=== PATIENT | male | born 1960 | race Caucasian/White ===

== ENCOUNTER 2017-04-14 03:48 | Observation (INO) | payer BC ==
[2017-04-14] MEDS ORDERED: Nitroglycerin 2% OINT* 1 GM PAK TOPICAL ONE (04:34)
[2017-04-14] MEDS ORDERED: Heparin DRIP 25,000 UNITS(*) 25,000 UNITS/500 ML BAG IVPB SCH ×2 (04:45→09:15)
[2017-04-14 04:47] LABS: ABS Basophils 0 10^3/ul (0-0.2); ABS Eosinophils 0.2 10^3/ul (0-0.6); ABS Lymphocytes 1.5 10^3/ul (1.0-4.8); ABS Monocytes 0.4 10^3/ul (0-0.8); ABS Neutrophils 2.9 10^3/ul (1.5-7.7); ABS Nucleated RBC 0 10^3/ul; Eosinophil % 4.1 % (0-6); Hematocrit 40 % (42-52); Hemoglobin 13.6 g/dl (14.0-18.0); Lymphocyte % 29.2 % (25-47); Mean Corpuscular HGB Conc 35 g/dl (31-36); Mean Corpuscular Hemoglobin 32 pg (27-31); Mean Corpuscular Volume 93 fL (80-94); Mean Platelet Volume 9 um3 (7.4-10.4); Nucleated Red Blood Cells % 0.1; Platelet Count 171 10^3/ul (150-450); Red Blood Count 4.25 10^6/ul (4.0-5.4); Red Cell Distribution Width 12 % (10.5-15)
[2017-04-14] MEDS ORDERED: Heparin VIAL(*) 5000 UNITS/ML VIAL (FIVE THOUSAND) IV SCH ×3 (05:00→11:00)
[2017-04-14 05:02] LABS: EGFR Non-African American 71.8 (>60)
[2017-04-14 05:25] LABS: INR 0.85 (0.77-1.02)
--- NOTE | 2017-04-14 06:24 | ED ---
Felipe Bae Thomas, scribed for Pasha Ceja on 04/14/17 at 0410 . HPI Chest Pain - HPI Summary HPI Summary: The patient is a 56 year old male presenting to the emergency department complaining of chest pain that began six hours ago (yesterday at 23:30). The pain radiates to his jaw and left arm. He describes the pain as tightness. The pain is rated 2/10. The patient has treated the symptoms with ASA 325 at home, ASA 324 by EMS, and Nitro SL x1 by EMS. The patient denies abdominal pain, nausea, vomiting, and diaphoresis. He takes ASA 81 each morning. He denies a cardiac history. He does not smoke. The patients father of an MN in his 40s. The patient has never had a stress test performed. - History of Current Complaint Chief Complaint: EDChestPainROMI Time Seen by Provider: 04/14/17 04:02 Hx Obtained From: Patient Onset/Duration: Started Hours Ago - 6, Still Present Timing: Constant Initial Severity: Moderate Current Severity: Mild Pain Intensity: 2 Pain Scale Used: 0-10 Numeric Chest Pain Radiates: Yes Chest Pain Radiates To:: Arm - left, Jaw Character: Tightness Aggravating Factor(s): Nothing Alleviating Factor(s): Nothing Associated Signs and Symptoms: Positive: Chest Pain. Negative: Other: - abd pain, nausea, vomiting, diaphoresis - Allergy/Home Medications Allergies/Adverse Reactions: Allergies Allergy/AdvReac Type Severity Reaction Status Date / Time No Known Allergies Allergy Verified 04/14/17 04:04 Home Medications: Home Medications Aspirin 81 MG TAB 81 mg PO DAILY 04/14/17 [History Confirmed 04/14/17] Multivitamin 1 tab PO DAILY 04/14/17 [History Confirmed 04/14/17] PMH/Surg Hx/FS Hx/Imm Hx Endocrine/Hematology History: Denies: Hx Diabetes Cardiovascular History: Denies: Hx Hypertension, Hx Pacemaker/ICD GI History: Reports: Hx Obstructive Bowel - 2003, Other GI Disorders - tubular adenoma colon polyp, intussusception & appey History: Denies: Hx Renal Disease Musculoskeletal History: Reports: Hx Arthritis - cervical Denies: Hx Scoliosis Sensory History: Denies: Hx Hearing Aid Neurological History: Denies: Hx Headaches Psychiatric History: Denies: Hx Panic Disorder - Surgical History Surgery Procedure, Year, and Place: teens - intussusception & appendectomy at the same time. 04/2004 [facility] [place] - bowel obstruction ( 1978 PARTIAL RESECTION - FROM OBSTRUCTION). 02/2009 [facility] [place] - colonoscopy w/biopsy - Immunization History Date of Influenza Vaccine: has not received Infectious Disease History: No Infectious Disease History: Denies: Traveled Outside the [place] in Last 30 Days - Family History Known Family History: Positive: Cardiac Disease - father of MN in his 40s - Social History Alcohol Use: Weekly Substance Use Type: Reports: Marijuana Hx Tobacco Use: Yes Smoking Status (MU): Former Smoker Review of Systems Negative: Fever, Skin Diaphoresis Positive: Chest Pain Negative: Abdominal Pain, Vomiting, Nausea All Other Systems Reviewed And Are Negative: Yes Physical Exam - Summary Physical Exam Summary: Appearance: Well appearing, no pain distress Skin: warm, dry, reflects adequate perfusion Head/face: normal Eyes: EOMI, RIVERA ENT: normal Neck: supple, non-tender Respiratory: CTA, breath sounds present Cardiovascular: RRR, pulses symmetrical Abdomen: non-tender, soft Bowel: present Musculoskeletal: normal, strength/ROM intact Neuro: normal, sensory motor intact, A&Ox3 Triage Information Reviewed: Yes Vital Signs On Initial Exam: Initial Vitals Temp Pulse Resp BP Pulse Ox 97.7 F 66 16 141/98 98 04/14/17 03:50 04/14/17 03:50 04/14/17 03:50 04/14/17 03:50 04/14/17 03:50 Vital Signs Reviewed: Yes Diagnostics - Vital Signs Vital Signs Temp Pulse Resp BP Pulse Ox 04/14/17 04:00 66 16 99 04/14/17 03:58 65 15 99 04/14/17 03:50 97.7 F 66 16 141/98 98 - Laboratory Lab Results: Lab Results 04/14/17 04/14/17 04/14/17 Range/Units 04:10 04:10 04:10 WBC 5.0 (3.5-10.8) 10^3/ul RBC 4.25 (4.0-5.4) 10^6/ul Hgb 13.6 L (14.0-18.0) g/dl Hct 40 L (42-52) % MCV 93 (80-94) fL MCH 32 H (27-31) pg MCHC 35 (31-36) g/dl RDW 12 (10.5-15) % Plt Count 171 (150-450) 10^3/ul MPV 9 (7.4-10.4) um3 Neut % (Auto) 57.8 (38-83) % Lymph % (Auto) 29.2 (25-47) % Crook % (Auto) 8.6 (1-9) % Eos % (Auto) 4.1 (0-6) % Baso % (Auto) 0.3 (0-2) % Absolute Neuts (auto) 2.9 (1.5-7.7) 10^3/ul Absolute Lymphs (auto) 1.5 (1.0-4.8) 10^3/ul Absolute Monos (auto) 0.4 (0-0.8) 10^3/ul Absolute Eos (auto) 0.2 (0-0.6) 10^3/ul Absolute Basos (auto) 0 (0-0.2) 10^3/ul Absolute Nucleated RBC 0 10^3/ul Nucleated RBC % 0.1 INR (Anticoag Therapy) 0.85 (0.77-1.02) APTT 29.9 (26.0-36.3) seconds Sodium 136 (133-145) mmol/L Potassium 3.4 L (3.5-5.0) mmol/L Chloride 104 (101-111) mmol/L Carbon Dioxide 26 (22-32) mmol/L Anion Gap 6 (2-11) mmol/L BUN 21 (6-24) mg/dL Creatinine 1.06 (0.67-1.17) mg/dL Est GFR ( Amer) 92.3 (>60) Est GFR (Non-Af Amer) 71.8 (>60) BUN/Creatinine Ratio 19.8 (8-20) Glucose 118 H (70-100) mg/dL Lactic Acid (0.5-2.0) mmol/L Calcium 9.2 (8.6-10.3) mg/dL Magnesium 1.9 (1.9-2.7) mg/dL Total Bilirubin 0.40 (0.2-1.0) mg/dL AST 24 (13-39) U/L ALT 20 (7-52) U/L Alkaline Phosphatase 61 (34-104) U/L Troponin I 0.03 (<0.04) ng/mL Total Protein 6.4 (6.4-8.9) g/dL Albumin 3.9 (3.2-5.2) g/dL Globulin 2.5 (2-4) g/dL Albumin/Globulin Ratio 1.6 (1-3) Lipase 36 (11.0-82.0) U/L 04/14/17 Range/Units 04:10 WBC (3.5-10.8) 10^3/ul RBC (4.0-5.4) 10^6/ul Hgb (14.0-18.0) g/dl Hct (42-52) % MCV (80-94) fL MCH (27-31) pg MCHC (31-36) g/dl RDW (10.5-15) % Plt Count (150-450) 10^3/ul MPV (7.4-10.4) um3 Neut % (Auto) (38-83) % Lymph % (Auto) (25-47) % Crook % (Auto) (1-9) % Eos % (Auto) (0-6) % Baso % (Auto) (0-2) % Absolute Neuts (auto) (1.5-7.7) 10^3/ul Absolute Lymphs (auto) (1.0-4.8) 10^3/ul Absolute Monos (auto) (0-0.8) 10^3/ul Absolute Eos (auto) (0-0.6) 10^3/ul Absolute Basos (auto) (0-0.2) 10^3/ul Absolute Nucleated RBC 10^3/ul Nucleated RBC % INR (Anticoag Therapy) (0.77-1.02) APTT (26.0-36.3) seconds Sodium (133-145) mmol/L Potassium (3.5-5.0) mmol/L Chloride (101-111) mmol/L Carbon Dioxide (22-32) mmol/L Anion Gap (2-11) mmol/L BUN (6-24) mg/dL Creatinine (0.67-1.17) mg/dL Est GFR ( Amer) (>60) Est GFR (Non-Af Amer) (>60) BUN/Creatinine Ratio (8-20) Glucose (70-100) mg/dL Lactic Acid 0.8 (0.5-2.0) mmol/L Calcium (8.6-10.3) mg/dL Magnesium (1.9-2.7) mg/dL Total Bilirubin (0.2-1.0) mg/dL AST (13-39) U/L ALT (7-52) U/L Alkaline Phosphatase (34-104) U/L Troponin I (<0.04) ng/mL Total Protein (6.4-8.9) g/dL Albumin (3.2-5.2) g/dL Globulin (2-4) g/dL Albumin/Globulin Ratio (1-3) Lipase (11.0-82.0) U/L Result Diagrams: 04/14/17 04:10 04/14/17 04:10 Lab Statement: Any lab studies that have been ordered have been reviewed, and results considered in the medical decision making process. - Radiology CXR Xray Interpretation: No Acute Changes - Negative Radiology Interpretation Completed By: ED Physician - CT CTA Head CT Interpretation: No Acute Changes - No evidence of major arterial branch occlusion, focal stenosis, vascular malformations, or aneurysms [address] Ceja has reviewed this report. CT Interpretation Completed By: Radiologist - EKG 03:53 Cardiac Rate: NL EKG Rhythm: Sinus Rhythm - at 64 BPM EKG Interpretation: ST depressions in inferior leads Chest Pain Course/Dx - Course Assessment/Plan: The patient is a 56 year old male presenting to the emergency department complaining of chest pain. The patient was given NTG and heparin in the emergency department. EKG shows ST depressions in inferior leads. CXR was obtained. The patient will be admitted to Dr. Valdez. - Chest Pain Differential Diagnosis/HQI/PQRI: Acute MN, ACS, CHF, Chest Wall, Lower Respiratory Infection, Pulmonary Edema - Diagnoses Provider Diagnoses: Chest pain, rule out acute myocardial infarction, Unstable angina - Provider Notifications Discussed Care Of Patient With: Olimpia Valdez Time Discussed With Above Provider: 05:52 Instructed by Provider To: Admit As Inpatient - Critical Care Time Critical Care Time: 30-74 min Discharge - Discharge Plan Condition: Stable Disposition: ADMITTED TO [facility] Referrals: Saroj Manriquez MD [Primary Care Provider] - The documentation as recorded by the Felipe pride Thomas accurately reflects the service I personally performed and the decisions made by me, Pasha Ceja.
[2017-04-14] MEDS ORDERED: Acetaminophen TAB* 325 MG PO PRN (06:34)
[2017-04-14] MEDS ORDERED: Ondansetron INJ* 2 MG/ML VIAL IV PRN (06:34)
[2017-04-14] MEDS ORDERED: Al Hydrox/Mg Hydrox/Simet LIQ* 30 ML UDC PO PRN (06:34)
--- NOTE | 2017-04-14 08:16 | RAD ---
HISTORY: Chest pain COMPARISONS: None VIEWS: 1: frontal portable view of the chest at 5:07 AM FINDINGS: LINES AND TUBES: None. CARDIOMEDIASTINAL SILHOUETTE: The cardiomediastinal silhouette is normal for portable technique. PLEURA: The costophrenic angles are sharp. No pleural abnormalities are noted. LUNG PARENCHYMA: The lungs are clear. ABDOMEN: The upper abdomen is clear. There is no subphrenic gas. BONES AND SOFT TISSUES: No bone or soft tissue abnormalities are noted. IMPRESSION: NO ACTIVE CARDIOPULMONARY DISEASE.
[2017-04-14] MEDS ORDERED: Atorvastatin* 80 MG TAB PO ONE (09:19)
--- NOTE | 2017-04-14 09:26 | PN ---
Hospitalist Progress Note Date of Service: 04/14/17 Called for second troponin positive at 0.43. I saw and examined Mr. Loomis; he is chest pain free. A stat ekg shows resolution of the inferior ST depressions and a q wave in avf. Hemodynamically stable. A/P: 56 yo M admitted with chest pain overnight found to have +troponin and ischemic ekg changes Acute Coronary Syndrome. NSTEMI. --DC stress test, start heparin, asa, statin, bb. Discussed case with cardiology for evaluation of LHC. Will hold plavix until they evaluate.
[2017-04-14] MEDS ORDERED: Diazepam TAB(*) 5 MG PO ONE (10:13)
[2017-04-14] MEDS ORDERED: diPHENhydraMINE PO* 25 MG PO ONE (10:13)
[2017-04-14] MEDS ORDERED: Heparin DRIP 25,000 UNITS(*) 25,000 UNITS/500 ML BAG IV SCH (10:15)
[2017-04-14] MEDS: Metoprolol Tartrate TAB* 25 MG PO SCH ×3 (10:15→22:41)
[2017-04-14] MEDS: Aspirin EC Low Dose* 81 MG TAB.EC PO SCH (10:15)
[2017-04-14] MEDS ORDERED: NS 0.9% 1000 ML* 1,000 ML IV SCH ×2 (10:15→14:30)
[2017-04-14] MEDS: Atorvastatin* 80 MG TAB PO SCH (10:16)
[2017-04-14 10:22] LABS: ABS Basophils 0 10^3/ul (0-0.2); ABS Eosinophils 0.2 10^3/ul (0-0.6); ABS Lymphocytes 1.4 10^3/ul (1.0-4.8); ABS Monocytes 0.4 10^3/ul (0-0.8); ABS Neutrophils 2.9 10^3/ul (1.5-7.7); ABS Nucleated RBC 0 10^3/ul; Eosinophil % 3.1 % (0-6); Hematocrit 41 % (42-52); Hemoglobin 13.5 g/dl (14.0-18.0); Lymphocyte % 28.1 % (25-47); Mean Corpuscular HGB Conc 33 g/dl (31-36); Mean Corpuscular Hemoglobin 31 pg (27-31); Mean Corpuscular Volume 94 fL (80-94); Mean Platelet Volume 8 um3 (7.4-10.4); Nucleated Red Blood Cells % 0; Platelet Count 175 10^3/ul (150-450); Red Blood Count 4.32 10^6/ul (4.0-5.4); Red Cell Distribution Width 12 % (10.5-15); White Blood Count 4.9 10^3/ul (3.5-10.8)
[2017-04-14] MEDS ORDERED: nitroGLYCERIN DRIP* 25,000 MCG/250 ML BTL ONE (11:50)
[2017-04-14] MEDS ORDERED: Heparin 2 UNITS/ML IVPREMIX* 3,000 ML IV ONE (11:50)
[2017-04-14] MEDS ORDERED: Lidocaine 1% INJ* 10 MG/ML 30 ML SDV ONE (11:50)
[2017-04-14] MEDS ORDERED: fentaNYL* 50 MCG/ML 2 ML VIAL (100 MCG VIAL) ONE (11:50)
[2017-04-14] MEDS ORDERED: Iohexol 350 (CONTRAST) 200 ML MDV IV ONE ×2 (11:50→13:23)
[2017-04-14] MEDS ORDERED: Midazolam* 1 MG/ML 10 ML VIAL (10 MG) ONE (11:50)
[2017-04-14] MEDS ORDERED: Heparin(*) 1000 UNIT/ML 10 ML VIAL CATH LAB IV ONE (11:50)
[2017-04-14] MEDS ORDERED: VERAPAMIL 2.5 MG/ML 2 ML VIAL ** 5 mg/2 ml ONE ×2 (11:55→12:28)
[2017-04-14] MEDS ORDERED: Bivalirudin(*) 250 MG VIAL ONE ×2 (12:42)
--- NOTE | 2017-04-14 12:58 | HP ---
CC: Saroj Manriquez MD HISTORY AND PHYSICAL: DATE OF ADMISSION: 04/14/17 TIME OF EVALUATION: 629. PRIMARY CARE PHYSICIAN: Dr. Saroj Manriquez. CHIEF COMPLAINT: Chest pain. HISTORY OF PRESENT ILLNESS: This is a 56-year-old male with unremarkable past medical history presents to the emergency room with acute onset of chest pain. 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 He had a stressful day. He came home. He had 2 slices of pizza, went to basketball game, came back, had some more pizza. He went out and he snow-blowed. He pulled some wood and he shoveled which is not out of the norm for him. Went to bed, woke up with chest heaviness and numbness radiating down his arm and chest numbness as well. No associated shortness of breath. No nausea, no diaphoresis. He tried to go back to sleep. He woke up again with this persistent chest pressure. He took 2 aspirin. He woke up his and came here over for further evaluation. He is currently chest pain free. He states he believes he had a treadmill stress test a while ago. No changes in weight. No lower extremity swelling. No fevers. No URI illness. Otherwise, remainder of review of system is negative. In the emergency room, the patient had labs, imaging, was put on an inch of nitro paste and was referred to the hospitalist service for further evaluation. The patient states he has lot of arthritis. He had a pinched nerve on the left side of his neck where he had left- sided numbness and atrophy from that, and has had problems with arthritis and pinched nerve since. PAST MEDICAL HISTORY: 1. Arthritis. 2. Sciatica. 3. History of pinched nerve on the left side. MEDICATIONS: None. ALLERGIES: No known drug allergies FAMILY HISTORY: Father at age 42 of possibly from a cardiac event; the patient is not sure. Mother age 66 from neurologic complications. SOCIAL HISTORY: The patient works as a director at [employer]. No tobacco use or illicit drug use. He drinks on the weekends. His healthcare proxy is his . He is pretty active physically. CODE STATUS: Full code. REVIEW OF SYSTEMS: A 14-point review of systems as mentioned in the HPI, otherwise negative. PHYSICAL EXAMINATION GENERAL: In no acute distress. Resting comfortably with the at the bedside. VITAL SIGNS: Temp is 97.7, pulse rate is 59, respiratory rate 11, oxygen saturation 97% on room air, blood pressure 117/66. HEENT: Head: Normocephalic. Pupils are equal and reactive, anicteric. Oropharynx: Mucous membranes moist. NECK: Supple. No lymphadenopathy. RESPIRATORY: Clear to auscultation. No wheezes, rhonchi, or rales. CARDIAC: Regular rate and rhythm. Soft systolic murmur heard throughout. ABDOMEN: Soft, nontender, and nondistended. EXTREMITIES: No clubbing, cyanosis or edema. +2 DPs. NEUROLOGIC: Alert and oriented x3. No focal neurologic deficits. DIAGNOSTIC STUDIES/LAB DATA: White count 5, hemoglobin 13.6, hematocrit 40, platelets 171. INR 0.85. Sodium 136, potassium 3.4, chloride 104, bicarb 26, BUN 21, creatinine 1.06, glucose 118, magnesium 1.9. Troponin 0.03. Radiographic data: EKG shows normal sinus rhythm, no prior EKG to compare to. ST depression in inferior leads. Chest x-ray: No abnormal findings on wet read. ASSESSMENT AND PLAN: This is a 56-year-old male with unremarkable past medical history, who presented to the emergency room with acute onset of chest pressure , now chest pain free. 1. Chest pain. Not unreasonable to rule him out for acute coronary syndrome as he does have some ST depression Plan: We will trend his troponin, get a lipid panel, continue him on baby aspirin, and put him on a treadmill stress test. We will keep him n.p.o. in case he needs to have a nuclear test. I suspect that this is more likely musculoskeletal or neuropathy from his pinched nerve on the left side. It seems to be pretty active and was doing shoveling and other exertional activities. 2. FEN. As mentioned keep him n.p.o. 3. DVT prophylaxis. The patient scores moderate risk. We will encourage ambulation. If he has a prolonged hospital stay, we will switch him over to chemical anticoagulation. 4. Code status. Full code. TIME SPENT: Greater than 40 minutes has been spent doing the history and physical, more than half time spent in direct patient contact. [id number]/[facility] #: [id number] [place]
[2017-04-14] MEDS ORDERED: Ticagrelor* 90 MG TAB PO ONE (13:00)
[2017-04-14] MEDS ORDERED: Adenosine* 3 MG/ML VIAL ONE (13:41)
[2017-04-14] MEDS ORDERED: Nitroglycerin TAB 0.4 MG* 0.4 MG TAB SL PRN (14:18)
--- NOTE | 2017-04-14 16:24 | CONS ---
CC: Hospitalist; Dr. Saroj Manriquez * CARDIOLOGY CONSULTATION: DATE OF CONSULT: 04/14/17 REASON FOR CONSULT: Elevated troponins and chest pain. CHIEF COMPLAINT: Neck, shoulder, arm, and chest pain. HISTORY OF PRESENT ILLNESS: The patient is a 56-year-old gentleman with no prior cardiac history. The patient awoke early this morning with neck, shoulder, and arm pain. He tried to sleep it off, but could not. It was associated with nausea, weight on the chest, and shortness of breath. He denies diaphoresis or orthopnea. 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 [place] well in the daytime. He typically uses a mouth guard to sleep at night, but did not use it last night (sleep apnea). The patient's chest pain went away with nitroglycerin given by the ambulance and has not recurred (beta evangelina and nitrates placed) and he feels normal now. Review of systems with his revealed that he had several months of exertional dyspnea, specifically when he was hunting this fall and more recently with utilization specialist activity. PAST MEDICAL HISTORY: The patient has a past medical history of spinal stenosis in the cervical spine involving the left upper body, obstructive sleep apnea for which he uses a mouth guard and sleeps on his side, and has a history of intussusception of the intestines with surgical correction followed by adhesions more recently requiring surgical intervention. FAMILY HISTORY: The patient's father of a heart attack at age 42. SOCIAL HISTORY: The patient never smoked. No history of recreational drug use. Rare alcohol use. Healthy diet, fit, exercises. He is . Works as a clown. REVIEW OF SYSTEMS: As above with exertional dyspnea for several months. Negative for recent fevers, chills, sweats, change of bowel or bladder habits. His said he has been more tired lately as well. The patient has not lost or gained weight. All other 14 point review of systems are unremarkable. PHYSICAL EXAM: The patient is a lean, fit-appearing, older, middle-aged gentleman in no acute distress. He is 6 feet 1 inch, weighs 194 pounds with a BMI of 25. Vitals: Blood pressure 103/64, pulse of 63, respiratory rate 13 to 16, oxygen saturation on room air 99%. He is afebrile. HEENT: Pupils are equal and round. Mucous membranes are moist. Neck: Without increased JVP appreciated. Good carotid pulses. No audible bruits. Lungs: Clear with good effort. No wheezes, rales, or rhonchi. Coronary: S1, S2 regular. No murmurs, rubs, or extra systoles. Abdomen: Flat, active bowel sounds, soft, nontender. No hepatomegaly or masses and no abdominal bruits. Femoral pulses are 2+ and free of bruits. Radial pulses are 2+ and symmetrical and he has strong dorsalis pedal and posterior tibial pulses that are symmetrical. DIAGNOSTIC STUDIES/LAB DATA: EKG #1 done at 4 in the morning showed normal sinus rhythm, 64 beats a minute, with mild ST depression in the inferior leads II, III, and aVF. EKG #2 done at 9 this morning showed normal sinus rhythm, 55 beats a minute, QRS axis -30, normal AV and IV conductions, flattened T waves in the inferior leads, the ST depression has resolved, corrected QT interval 378 msec. White count 5, hemoglobin 13.6, hematocrit 40, and platelets 171. INR 0.85. Sodium 136, potassium 3.4, chloride 104, glucose 118, BUN 21, creatinine 1.06. ALT of 20. Troponin #1 0.03, troponin #2 0.43. Total cholesterol 218, triglycerides 29, HDL cholesterol 74, and LDL cholesterol 138. IMPRESSION AND PLAN: In summary, Mr. Loomis is a 56-year-old gentleman, who awoke with angina-like chest pain associated with inferior ST depression and a mild bump in troponins, all suggestive of non-Q wave myocardial infarction of the inferior wall. Atherosclerotic risks include family history of early atherosclerotic heart disease, mild dyslipidemia with elevated LDL cholesterol, and sleep apnea. His elevated sugar might represent some early metabolic syndrome and glucose intolerance. I have recommended cardiac catheterization in addition to medical management. The indications, risks, and benefits were discussed in depth with the patient in the presence of his and he is amenable to proceeding. Lipitor has been added. We will continue the beta evangelina that the hospitalist has started. He has a nitro patch on, this will likely be able to be discontinued and heparin drips on. Antiplatelet agents will be determined by Interventional Cardiology, who is contacted. [id number]/[facility] #: [id number] [facility] HE[facility] NETWORKNicole
[2017-04-14 19:51] LABS: Urine Appearance Clear; Urine Blood Negative (Negative); Urine Color Straw; Urine Ketones Negative (Negative); Urine Protein Negative (Negative); Urine Specific Gravity 1.045 (1.010-1.030); Urine Urobilinogen Negative (Negative)
[2017-04-14] MEDS: Ticagrelor* 90 MG TAB PO SCH (21:27)
[2017-04-15 05:22] LABS: ABS Basophils 0 10^3/ul (0-0.2); ABS Eosinophils 0.2 10^3/ul (0-0.6); ABS Lymphocytes 1.3 10^3/ul (1.0-4.8); ABS Monocytes 0.4 10^3/ul (0-0.8); ABS Neutrophils 2.9 10^3/ul (1.5-7.7); ABS Nucleated RBC 0 10^3/ul; Eosinophil % 3.6 % (0-6); Hematocrit 37 % (42-52); Hemoglobin 12.7 g/dl (14.0-18.0); Lymphocyte % 27.6 % (25-47); Mean Corpuscular HGB Conc 34 g/dl (31-36); Mean Corpuscular Hemoglobin 32 pg (27-31); Mean Corpuscular Volume 93 fL (80-94); Mean Platelet Volume 8 um3 (7.4-10.4); Nucleated Red Blood Cells % 0.1; Platelet Count 149 10^3/ul (150-450); Red Blood Count 4.03 10^6/ul (4.0-5.4); Red Cell Distribution Width 13 % (10.5-15); White Blood Count 4.8 10^3/ul (3.5-10.8)
[2017-04-15 05:39] LABS: EGFR Non-African American 84.5 (>60)
[2017-04-15] MEDS: Metoprolol Tartrate TAB* 25 MG PO SCH (05:44)
[2017-04-15] MEDS ORDERED: Metoprolol Succinate XL TAB* 25 MG PO SCH (09:00)
[2017-04-15] MEDS: Aspirin EC Low Dose* 81 MG TAB.EC PO SCH (09:25)
[2017-04-15] MEDS: Ticagrelor* 90 MG TAB PO SCH (09:25)
[2017-04-15] MEDS: Atorvastatin* 80 MG TAB PO SCH (09:25)
--- NOTE | 2017-04-15 09:47 | PN ---
Subjective Date of Service: 04/15/17 Interval History: Feels great this morning, no chest pain overnight. Wrist site without bleeding or pain. Family History: Findings - father at 42 of [place] Objective Active Medications: Acetaminophen (Tylenol Tab*) 650 mg PO Q4H PRN PRN Reason: FEVER/PAIN Al Hydrox/Mg Hydrox/Simethicone (Maalox Plus*) 30 ml PO Q6H PRN PRN Reason: INDIGESTION Aspirin (Aspirin Ec Low Dose*) 81 mg PO DAILY [facility] Last Admin: 04/15/17 09:25 Dose: 81 mg Atorvastatin Calcium (Lipitor*) 80 mg PO DAILY [facility] Last Admin: 04/15/17 09:25 Dose: 80 mg Metoprolol Succinate (Toprol Xl Tab*) 25 mg PO DAILY [facility] Last Admin: 04/15/17 09:25 Dose: 25 mg Nitroglycerin (Nitroglycerin Tab 0.4 Mg*) 0.4 mg SL Q5M PRN PRN Reason: ANGINA Ondansetron HCl (Zofran Inj*) 4 mg IV Q4H PRN PRN Reason: NAUSEA/VOMITING Ticagrelor (Brilinta*) 90 mg PO BID [facility] Last Admin: 04/15/17 09:25 Dose: 90 mg Vital Signs - 8 hr 04/15/17 04/15/17 04/15/17 02:00 02:30 03:00 Temperature Pulse Rate 53 63 62 Respiratory 15 11 7 Rate Blood Pressure 107/67 105/76 116/70 (mmHg) O2 Sat by Pulse 98 97 98 Oximetry 04/15/17 04/15/17 04/15/17 03:01 03:30 04:00 Temperature 97.5 F Pulse Rate 64 68 63 Respiratory 3 7 13 Rate Blood Pressure 99/63 (mmHg) O2 Sat by Pulse 98 98 97 Oximetry 04/15/17 04/15/17 04/15/17 04:01 04:30 05:00 Temperature Pulse Rate 58 68 59 Respiratory 18 10 16 Rate Blood Pressure 92/66 94/53 88/67 (mmHg) O2 Sat by Pulse 96 98 97 Oximetry 04/15/17 04/15/17 04/15/17 05:30 06:00 06:30 Temperature Pulse Rate 55 73 62 Respiratory 0 5 17 Rate Blood Pressure 98/61 107/72 (mmHg) O2 Sat by Pulse 97 90 97 Oximetry 04/15/17 04/15/17 04/15/17 07:00 07:01 07:30 Temperature Pulse Rate 61 71 58 Respiratory 18 15 2 Rate Blood Pressure 118/61 111/70 (mmHg) O2 Sat by Pulse 98 98 96 Oximetry 04/15/17 08:00 Temperature 98 F Pulse Rate 67 Respiratory 18 Rate Blood Pressure 120/76 (mmHg) O2 Sat by Pulse 98 Oximetry Oxygen Devices in Use Now: None Appearance: alert, well appearing Eyes: No Scleral Icterus Ears/Nose/Mouth/Throat: NL Teeth, Lips, Gums Neck: NL Appearance and Movements; NL JVP Respiratory: Symmetrical Chest Expansion and Respiratory Effort, Clear to Auscultation Cardiovascular: NL Sounds; No Murmurs; No JVD, RRR Abdominal: NL Sounds; No Tenderness; No Distention Lymphatic: No Cervical Adenopathy Extremities: No Edema, - - R wrist board in place. no hematoma. Skin: No Rash or Ulcers Neurological: Alert and Oriented x 3 Result Diagrams: 04/15/17 05:15 04/15/17 05:15 Additional Lab and Data: Lab Results 04/14/17 04/14/17 04/14/17 Range/Units 04:10 04:10 04:10 WBC 5.0 (3.5-10.8) 10^3/ul RBC 4.25 (4.0-5.4) 10^6/ul Hgb 13.6 L (14.0-18.0) g/dl Hct 40 L (42-52) % MCV 93 (80-94) fL MCH 32 H (27-31) pg MCHC 35 (31-36) g/dl RDW 12 (10.5-15) % Plt Count 171 (150-450) 10^3/ul MPV 9 (7.4-10.4) um3 Neut % (Auto) 57.8 (38-83) % Lymph % (Auto) 29.2 (25-47) % Bryan % (Auto) 8.6 (1-9) % Eos % (Auto) 4.1 (0-6) % Baso % (Auto) 0.3 (0-2) % Absolute Neuts (auto) 2.9 (1.5-7.7) 10^3/ul Absolute Lymphs (auto) 1.5 (1.0-4.8) 10^3/ul Absolute Monos (auto) 0.4 (0-0.8) 10^3/ul Absolute Eos (auto) 0.2 (0-0.6) 10^3/ul Absolute Basos (auto) 0 (0-0.2) 10^3/ul Absolute Nucleated RBC 0 10^3/ul Nucleated RBC % 0.1 INR (Anticoag Therapy) 0.85 (0.77-1.02) APTT 29.9 (26.0-36.3) seconds Sodium 136 (133-145) mmol/L Potassium 3.4 L (3.5-5.0) mmol/L Chloride 104 (101-111) mmol/L Carbon Dioxide 26 (22-32) mmol/L Anion Gap 6 (2-11) mmol/L BUN 21 (6-24) mg/dL Creatinine 1.06 (0.67-1.17) mg/dL Est GFR ( Amer) 92.3 (>60) Est GFR (Non-Af Amer) 71.8 (>60) BUN/Creatinine Ratio 19.8 (8-20) Glucose 118 H (70-100) mg/dL Lactic Acid (0.5-2.0) mmol/L Calcium 9.2 (8.6-10.3) mg/dL Magnesium 1.9 (1.9-2.7) mg/dL Total Bilirubin 0.40 (0.2-1.0) mg/dL AST 24 (13-39) U/L ALT 20 (7-52) U/L Alkaline Phosphatase 61 (34-104) U/L Troponin I 0.03 (<0.04) ng/mL Total Protein 6.4 (6.4-8.9) g/dL Albumin 3.9 (3.2-5.2) g/dL Globulin 2.5 (2-4) g/dL Albumin/Globulin Ratio 1.6 (1-3) Lipase 36 (11.0-82.0) U/L 04/14/17 Range/Units 04:10 WBC (3.5-10.8) 10^3/ul RBC (4.0-5.4) 10^6/ul Hgb (14.0-18.0) g/dl Hct (42-52) % MCV (80-94) fL MCH (27-31) pg MCHC (31-36) g/dl RDW (10.5-15) % Plt Count (150-450) 10^3/ul MPV (7.4-10.4) um3 Neut % (Auto) (38-83) % Lymph % (Auto) (25-47) % Bryan % (Auto) (1-9) % Eos % (Auto) (0-6) % Baso % (Auto) (0-2) % Absolute Neuts (auto) (1.5-7.7) 10^3/ul Absolute Lymphs (auto) (1.0-4.8) 10^3/ul Absolute Monos (auto) (0-0.8) 10^3/ul Absolute Eos (auto) (0-0.6) 10^3/ul Absolute Basos (auto) (0-0.2) 10^3/ul Absolute Nucleated RBC 10^3/ul Nucleated RBC % INR (Anticoag Therapy) (0.77-1.02) APTT (26.0-36.3) seconds Sodium (133-145) mmol/L Potassium (3.5-5.0) mmol/L Chloride (101-111) mmol/L Carbon Dioxide (22-32) mmol/L Anion Gap (2-11) mmol/L BUN (6-24) mg/dL Creatinine (0.67-1.17) mg/dL Est GFR ( Amer) (>60) Est GFR (Non-Af Amer) (>60) BUN/Creatinine Ratio (8-20) Glucose (70-100) mg/dL Lactic Acid 0.8 (0.5-2.0) mmol/L Calcium (8.6-10.3) mg/dL Magnesium (1.9-2.7) mg/dL Total Bilirubin (0.2-1.0) mg/dL AST (13-39) U/L ALT (7-52) U/L Alkaline Phosphatase (34-104) U/L Troponin I (<0.04) ng/mL Total Protein (6.4-8.9) g/dL Albumin (3.2-5.2) g/dL Globulin (2-4) g/dL Albumin/Globulin Ratio (1-3) Lipase (11.0-82.0) U/L Assess/Plan/Problems-Billing Assessment: 56 yo M with strong family history of early cardiac admitted with chest pain and found to have an NSTEMI - Patient Problems (1) NSTEMI (non-ST elevated myocardial infarction) Current Visit: Yes Status: Acute Code(s): I21.4 - NON-ST ELEVATION (NSTEMI) MYOCARDIAL INFARCTION SNOMED Code(s): 762651650 Comment: s/p PCI yesterday; TRAV to mid-LAD and OM2. ASA/Brilinta BB high potency statin We discussed modifiable risk factors for secondary prevention TTE today
--- NOTE | 2017-04-15 13:10 | ECHO ---
Patient: SHAVON RAM [facility] Rec#: [id number] : 1960 Date: 04/15/2017 Age: 56y Height: 182.88 cm / 72.0 in Weight: 88.45 kg / 194.9 lbs Sex: M BSA: 2.11 Room#: ICU 3 Admit Date#: 04/14/2017 Type: Inpatient Referring: Jon Oakes MD Reading: Jon Oakes MD Outsole Scheduler: Maude Padron,RDCS,RDMS CC: Saroj Manriquez MD Transthoracic Echocardiogram Indication: NSTEMI BP: 128/74 HR: 81 Rhythm: NSR with PVCs Findings History: S/P NSTEMI and PCI Technical Comments: The study quality is fair. The study is technically limited due to poor acoustic windows. Left Ventricle: The left ventricular chamber size is normal. Mild concentric left ventricular hypertrophy is observed. Global left ventricular wall motion and contractility are within normal limits. There is normal left ventricular systolic function. The estimated ejection fraction is 55-60%. The assessment of diastolic function is non-diagnostic. Left Atrium: The left atrial chamber size is normal. Right Ventricle: The right ventricular chamber size and systolic function are within normal limits. Right Atrium: The right atrium is slightly dilated. Aortic Valve: There is no evidence of aortic valve thickening. There is a trace of aortic regurgitation. There is no evidence of aortic stenosis. Mitral Valve: The mitral valve leaflets appear normal. There is no evidence of mitral regurgitation. There is no evidence of mitral stenosis. Tricuspid Valve: The tricuspid valve leaflets are normal. There is a physiologic tricuspid regurgitation. Unable to estimate the right ventricular systolic pressure. Pulmonic Valve: There is no evidence of pulmonic valve thickening. There is no evidence of pulmonic regurgitation. Pericardium: There is no significant pericardial effusion. Aorta: The ascending aorta is not well visualized. There is no dilatation of the aortic arch. The aortic root is normal in size. Pulmonary Artery: The main pulmonary artery is not well visualized. Venous: The inferior vena cava is dilated. There is a greater than 50% respiratory change in the inferior vena cava dimension. Conclusions Mild concentric left ventricular hypertrophy is observed. There is normal left ventricular systolic function. The estimated ejection fraction is 55-60%. There is a trace of aortic regurgitation. No reports of prior studies are offered for comparison. Measurements Name Value Normal Range RVIDd (AP) 2D 2 cm (0.9 - 2.6) RVDdMajor (2D) 3.1 cm (2.2 - 4.4) RAd ISD 4CH 5.6 cm (3.4 - 4.9) RA (A4C)W 4.3 cm (2.9 - 4.6) IVSd (2D) 1.3 cm (0.6 - 1) LVPWd (2D) 1.1 cm (0.6 - 1) LVIDd (2D) 3.3 cm (3.6 - 5.4) LVIDs (2D) 2.4 cm - LV FS (2D) 28 % (25 - 45) Aortic Annulus 2.1 cm (1.4 - 2.6) Ao root diameter (2D) 3.5 cm (2.1 - 3.5) Aortic arch 2.8 cm (1.8 - 3.4) LA dimension (AP) 2D 2.9 cm (2.3 - 3.8) LAd ISD 4CH 5.3 cm (2.9 - 5.3) LA ISD 4CH W 4.2 cm (2.5 - 4.5) Name Value Normal Range LA ESV SP 4CH (A/L) 49.25 ml - LA ESV SP 2CH (A/L) 64.84 ml - LA ESV BP (A/L) 56.54 ml - LA ESV BP (A/L) index 27 ml/m2 - LA ESV SP 4CH (MOD) 46.23 ml - LA ESV SP 2CH (MOD) 61.23 ml - LV EDV SP 4CH (MOD) 68.94 ml - LV ESV SP 4CH (MOD) 28.47 ml - EF SP 4CH (MOD) 58.7 % - LV EDV SP 2CH (MOD) 84.06 ml - LV ESV SP 2CH (MOD) 20.12 ml - EF SP 2CH (MOD) 76.07 % - LV EDV BP 80.55 ml - LV ESV BP 25.69 ml - BP EF (MOD) 68 % - Name Value Normal Range MV E-wave Vmax 0.7 m/sec - MV deceleration time 292 msec - MV A-wave Vmax 0.8 m/sec - MV E:A ratio 0.9 ratio - LV septal e' Vmax 0.07 m/sec - LV lateral e' Vmax 0.08 m/sec - LV E:e' septal ratio 10 ratio - LV E:e' lateral ratio 9 ratio - Name Value Normal Range AV Vmax 1.2 m/sec - AV VTI 24.5 cm - AV peak gradient 6 mmHg - AV mean gradient 3.5 mmHg - LVOT Vmax 1.1 m/sec - LVOT VTI 21 cm - LVOT peak gradient 5 mmHg - LVOT mean gradient 2.3 mmHg - MIKE Vmax 0.9 m/sec - Name Value Normal Range RAP 8 mmHg - IVC diameter 2.3 cm - Name Value Normal Range PV Vmax 0.8 m/sec - PV peak gradient 2.6 mmHg -
[2017-04-15 14:42] VITALS: BP 112/74
--- NOTE | 2017-04-15 20:58 | CATH ---
CC: Dr. Saroj Manriquez * CARDIAC CATHETERIZATION AND INTERVENTIONAL REPORT: DATE OF STUDY: 04/14/17 INDICATION FOR THE PROCEDURE: The patient with non-ST elevation myocardial infarction with positive enzymes with nonspecific ST-T wave changes, assess coronary artery for the presence of significant coronary artery disease. PROCEDURE: Coronary arteriography, left heart catheterization, left ventriculography, primary stenting of the mid LAD with a 4.0 x 12 mm long Synergy drug-eluting stent postdilated to 4.2 mm. Balloon angioplasty and placement of a 2.25 x 12 mm long Synergy drug-eluting stent in the second obtuse marginal branch. The patient was interviewed and examined in the intensive care unit where the risks and benefits were explained. He understood them and wished to proceed. EQUIPMENT USED: 1. The radial artery sheath - 6-Iranian Glidesheath. 2. Diagnostic catheter: A TIG 4.0 5-Iranian diagnostic catheter. 3. Left heart catheterization catheter: A 5-Iranian PIG Performa radial. 4. A guiding catheter: A 6-Iranian VL 3.5 curve guide catheter. 5. Interventional wire: An All Star guidewire 190 length. 6. Stent to LAD - a 4.0 x 12 Synergy drug-eluting stent. 7. Post stent deployment balloon catheter - a NC Emerge 4.0 x 8 mm long balloon. 8. Interventional wire for obtuse marginal branch - BMW 190 length. 9. Pre-stent deployment balloon catheter - Emerge 2.0 x 8 mm long balloon. 10. Stent to obtuse marginal branch: 2.25 x 12 Synergy drug-eluting stent. 11. The total contrast used 250 cc of Omnipaque dye. Radiation exposure included 22.2 minutes of fluoro time. The air kerma radiation was 2252 milligray. The DAP radiation was 13,291 microgray per meter squared. The approach was right radial artery. The hemostasis technique was a Vasc Band placement at end of case with reverse Barbeau of B result. MEDICATION GIVEN: Included: 1. Angiomax bolus and Angiomax drip for a subtherapeutic ACT. 2. Brilinta 180 mg orally. 3. Intracoronary nitroglycerin. 4. Versed for sedation. 5. Intracoronary adenosine. 6. Radial artery cocktail of 300 mcg of nitroglycerin and 3 mg of verapamil on placement of the sheath. RESULTS: HEMODYNAMIC DATA: Left heart catheterization: Central aortic pressure recorded at 96/55 with a mean of 92, left ventricular pressure 94 over left ventricular end diastolic pressure of 14. LEFT VENTRICULOGRAPHY: Performed in the RIOS projection revealed symmetrical contraction of left ventricle with overall ejection fraction approximately 50% to 55%. CORONARY ARTERIOGRAPHY: A. Left coronary artery: 1. Left main - widely patent with no significant disease. 2. Left anterior descending artery - the mid portion of the left anterior descending artery after a large first diagonal branch revealed a hazy 80% to 85% lesion. Following this, the artery continued toward the apical region, but not well onto the distal inferior wall. There were no other significant lesion seen. The diagonal branch had no significant disease. 3. Circumflex artery - A nondominant vessel with a thin first obtuse marginal branch, followed by a mid trifurcating obtuse marginal branch of somewhat small caliber with a critical 99% lesion noted. Of note, there was slight haze within this lesion as well. B. Right coronary artery - a dominant vessel supplying a large PDA extending to the apical region followed by two posterior left ventricular branches. There was a minimal 15% narrowing seen in the proximal portion. INTERVENTION INTO PROXIMAL LAD: Successful reduction of 80% to 85% hazy lesion with primary stenting utilizing a 4.0 x 12 mm long Synergy drug-eluting stent postdilated to 4.2 mm with JESSICA-3 flow, no dissection seen, and 0% residual stenosis. INTERVENTION INTO SECOND SMALL CALIBER OBTUSE MARGINAL BRANCH: Successful reduction of critical 95% blockage with balloon angioplasty and placement of a 2.25 x 12 mm long Synergy drug-eluting stent with initial JESSICA 1 to 2 flow, improved with adenosine therapy and waiting with time with residual stenosis of less than 10%, no dissection seen. OVERALL ASSESSMENT: Successful intervention into mid LAD and second obtuse marginal branch as described above, dual antiplatelet therapy for ideally a year's time should be pursued. Aggressive risk factor management with high-dose statin therapy has been instituted. The patient will be followed up for primary cardiology through Dr. Parmar's, primary formulation chemist. [id number]/[facility] #: [id number] COOPER
== END 2017-04-15 17:30 | disposition home or self-care (01) ==
LOC: ED 03:48 → MEDTELE 07:31 → ICU 14:22
PROVIDERS: ADMIT Pediatrics; ATTEND Internal Medicine
DX: I21.4 Non-ST elevation (NSTEMI) myocardial infarction (principal); R07.9 Chest pain, unspecified; Z87.891 Personal history of nicotine dependence; I20.0 Unstable angina; M19.90 Unspecified osteoarthritis, unspecified site; M54.30 Sciatica, unspecified side; Z86.69 Personal history of other diseases of the nervous system and sense organs
CPT/HCPCS: 36415; 71045; 76937; 80053; 80061; 81003; 82553; 83036; 83605; 83690; 83735; 84484; 84520; 85025; 85610; 85730; 93005; 93306; 93458; 96365; 99156; 99157; 99284; A9270-GY; C1725; C1769; C1876; C1887; C9600-LD; C9601-LC; G0378; J0153; J0583; J1644; J2250; J3010

== ENCOUNTER 2017-07-09 18:11 | Observation (INO) | payer BC ==
[2017-07-09] MEDS ORDERED: Nitroglycerin 0.2 MG/HR PATCH* (5 MG) TRANSDERM ONE (18:50)
[2017-07-09 19:07] LABS: ABS Basophils 0 10^3/ul (0-0.2); ABS Eosinophils 0.2 10^3/ul (0-0.6); ABS Lymphocytes 1.4 10^3/ul (1.0-4.8); ABS Monocytes 0.5 10^3/ul (0-0.8); ABS Neutrophils 2.9 10^3/ul (1.5-7.7); ABS Nucleated RBC 0 10^3/ul; Eosinophil % 3.6 % (0-6); Hematocrit 40 % (42-52); Hemoglobin 13.7 g/dl (14.0-18.0); Lymphocyte % 28.6 % (25-47); Mean Corpuscular HGB Conc 34 g/dl (31-36); Mean Corpuscular Hemoglobin 32 pg (27-31); Mean Corpuscular Volume 92 fL (80-94); Nucleated Red Blood Cells % 0; Platelet Count 156 10^3/ul (150-450); Red Cell Distribution Width 13 % (10.5-15)
[2017-07-09 19:20] LABS: INR 0.91 (0.77-1.02)
[2017-07-09] MEDS ORDERED: Morphine VIAL* 4 MG/ML VIAL (1 ml vial) IV PRN (20:11)
[2017-07-09] MEDS ORDERED: Acetaminophen TAB* 325 MG PO PRN (20:11)
[2017-07-09] MEDS ORDERED: Ondansetron INJ* 2 MG/ML VIAL IV PRN (20:11)
[2017-07-09] MEDS ORDERED: Albuterol 2.5 MG/3 ML NEB.SOL* (0.083%) INH PRN (20:11)
[2017-07-09] MEDS ORDERED: NS 0.9% 1000 ML* 1,000 ML IV SCH ×2 (20:15→20:42)
--- NOTE | 2017-07-09 20:15 | RAD ---
Indication: Chest pain. Single frontal view of the chest performed at 1904 hours was reviewed. Comparison is made with previous exam dated April 14, 2017. No mediastinal shift is noted. Heart is of normal size and configuration. Lung wiley appear clear. IMPRESSION: NO ACTIVE CARDIOPULMONARY DISEASE IS NOTED.
--- NOTE | 2017-07-09 20:39 | ED ---
Cong Bae Angela, scribed for Pasha Ceja on 07/09/17 at 1900 . HPI Chest Pain - HPI Summary HPI Summary: This pt is a 56 y/o male [facility] c/o left sided chest pain today. Pt reports he has chest pain only with deep breathing for the past several hours. He has hx of cardiac stents and states that when he breathes deeply he can "feel the two stents." Pt additionally notes dizziness, lightheadedness, fatigue. He currently reports feeling "a little sloppy" and tingling in his fingers. Denies fever, nausea, diaphoresis. Pt had [address] Oakes on April 14, 2017. He does rehab on Mondays and Wednesdays, and states that 2 days ago after his third machine his blood pressure was low. Last night he had 1 shot of bourbon and a beer. Denies tobacco or drug use. He is currently on aspirin and Brilinta. - History of Current Complaint Chief Complaint: EDChestPainROMI Time Seen by Provider: 07/09/17 18:36 Hx Obtained From: Patient Onset/Duration: Started Hours Ago, Still Present Timing: Lasting Hours Current Severity: Mild Pain Intensity: 1 Pain Scale Used: 0-10 Numeric Chest Pain Location: Left Anterior Chest Pain Radiates: No Aggravating Factor(s): Deep Breaths Alleviating Factor(s): Nothing Associated Signs and Symptoms: Positive: Chest Pain, Tingling - in fingers, Dizziness, Lightheadedness. Negative: Fever, Diaphoresis, Nausea - Additional Pertinent History Primary Care Physician: [id number] - Allergy/Home Medications Allergies/Adverse Reactions: Allergies Allergy/AdvReac Type Severity Reaction Status Date / Time No Known Allergies Allergy Verified 07/09/17 18:18 Home Medications: Home Medications Metoprolol Succinate XL TAB* [Toprol XL TAB*] 50 mg PO DAILY 07/09/17 [History Confirmed 07/09/17] Nitroglycerin TAB 0.4 MG* 0.4 mg SL Q5M PRN 07/09/17 [History Confirmed 07/09/17 ] Potassium Chlor TAB* [Klor Con ER TAB*] 10 meq PO DAILY 07/09/17 [History Confirmed 07/09/17] PMH/Surg Hx/FS Hx/Imm Hx Endocrine/Hematology History: Denies: Hx Diabetes Cardiovascular History: Denies: Hx Hypertension, Hx Pacemaker/ICD GI History: Reports: Hx Obstructive Bowel - 2003, Other GI Disorders - tubular adenoma colon polyp, intussusception & appey History: Denies: Hx Renal Disease Musculoskeletal History: Reports: Hx Arthritis - cervical Denies: Hx Scoliosis Sensory History: Denies: Hx Contacts or Glasses, Hx Hearing Aid Opthamlomology History: Denies: Hx Contacts or Glasses Neurological History: Denies: Hx Headaches Psychiatric History: Denies: Hx Panic Disorder - Surgical History Surgery Procedure, Year, and Place: teens - intussusception & appendectomy at the same time. 04/2004 [facility] - bowel obstruction ( 1978 PARTIAL RESECTION - FROM OBSTRUCTION). 02/2009 [facility] - colonoscopy w/biopsy. 2 Stents placed - 04/14/17 - Immunization History Date of Influenza Vaccine: has not received Infectious Disease History: No Infectious Disease History: Denies: Traveled Outside the [place] in Last 30 Days - Family History Known Family History: Positive: Cardiac Disease - father of [place] in his 40s - Social History Alcohol Use: Rare Substance Use Type: Reports: Marijuana Hx Tobacco Use: Yes Smoking Status (MU): Former Smoker Review of Systems Negative: Fever, Chills, Skin Diaphoresis Positive: Chest Pain Negative: Shortness Of Breath Negative: Nausea Neurological: Other - POS: dizziness, lightheadedness Positive: Paresthesia - in fingers All Other Systems Reviewed And Are Negative: Yes Physical Exam - Summary Physical Exam Summary: Appearance: Well appearing, no pain distress Skin: warm, dry, reflects adequate perfusion Head/face: normal Eyes: EOMI, RIVERA ENT: normal Neck: supple, nontender Respiratory: CTA, breath sounds present Cardiovascular: RRR, pulses symmetrical Abdomen: nontender, soft Bowel: present Musculoskeletal: normal, strength/ROM intact Neuro: normal, sensory motor intact, A&Ox3 Triage Information Reviewed: Yes Vital Signs On Initial Exam: Initial Vitals Temp Pulse Resp BP Pulse Ox 97.3 F 61 14 130/82 97 07/09/17 18:18 07/09/17 18:18 07/09/17 18:18 07/09/17 18:18 07/09/17 18:18 Vital Signs Reviewed: Yes Diagnostics - Vital Signs Vital Signs Temp Pulse Resp BP Pulse Ox 07/09/17 18:18 97.3 F 61 14 130/82 97 - Laboratory Lab Results: Lab Results 07/09/17 07/09/17 07/09/17 Range/Units 18:55 18:55 18:55 WBC 5.0 (3.5-10.8) 10^3/ul RBC 4.30 (4.0-5.4) 10^6/ul Hgb 13.7 L (14.0-18.0) g/dl Hct 40 L (42-52) % MCV 92 (80-94) fL MCH 32 H (27-31) pg MCHC 34 (31-36) g/dl RDW 13 (10.5-15) % Plt Count 156 (150-450) 10^3/ul MPV 8.0 (7.4-10.4) um3 Neut % (Auto) 57.3 (38-83) % Lymph % (Auto) 28.6 (25-47) % [place] % (Auto) 9.8 H (0-7) % Eos % (Auto) 3.6 (0-6) % Baso % (Auto) 0.7 (0-2) % Absolute Neuts (auto) 2.9 (1.5-7.7) 10^3/ul Absolute Lymphs (auto) 1.4 (1.0-4.8) 10^3/ul Absolute Monos (auto) 0.5 (0-0.8) 10^3/ul Absolute Eos (auto) 0.2 (0-0.6) 10^3/ul Absolute Basos (auto) 0 (0-0.2) 10^3/ul Absolute Nucleated RBC 0 10^3/ul Nucleated RBC % 0 INR (Anticoag Therapy) 0.91 (0.77-1.02) APTT 30.3 (26.0-36.3) seconds Sodium (139-145) mmol/L Potassium (3.5-5.0) mmol/L Chloride (101-111) mmol/L Carbon Dioxide (22-32) mmol/L Anion Gap (2-11) mmol/L BUN (6-24) mg/dL Creatinine (0.67-1.17) mg/dL Est GFR ( Amer) (>60) Est GFR (Non-Af Amer) (>60) BUN/Creatinine Ratio (8-20) Glucose (70-100) mg/dL Lactic Acid (0.5-2.0) mmol/L Calcium (8.6-10.3) mg/dL Total Bilirubin (0.2-1.0) mg/dL AST (13-39) U/L ALT (7-52) U/L Alkaline Phosphatase (34-104) U/L Troponin I (<0.04) ng/mL B-Natriuretic Peptide 28 ( - 100) pg/mL Total Protein (6.4-8.9) g/dL Albumin (3.2-5.2) g/dL Globulin (2-4) g/dL Albumin/Globulin Ratio (1-3) 07/09/17 07/09/17 Range/Units 18:55 18:55 WBC (3.5-10.8) 10^3/ul RBC (4.0-5.4) 10^6/ul Hgb (14.0-18.0) g/dl Hct (42-52) % MCV (80-94) fL MCH (27-31) pg MCHC (31-36) g/dl RDW (10.5-15) % Plt Count (150-450) 10^3/ul MPV (7.4-10.4) um3 Neut % (Auto) (38-83) % Lymph % (Auto) (25-47) % [place] % (Auto) (0-7) % Eos % (Auto) (0-6) % Baso % (Auto) (0-2) % Absolute Neuts (auto) (1.5-7.7) 10^3/ul Absolute Lymphs (auto) (1.0-4.8) 10^3/ul Absolute Monos (auto) (0-0.8) 10^3/ul Absolute Eos (auto) (0-0.6) 10^3/ul Absolute Basos (auto) (0-0.2) 10^3/ul Absolute Nucleated RBC 10^3/ul Nucleated RBC % INR (Anticoag Therapy) (0.77-1.02) APTT (26.0-36.3) seconds Sodium 139 (139-145) mmol/L Potassium 3.7 (3.5-5.0) mmol/L Chloride 103 (101-111) mmol/L Carbon Dioxide 28 (22-32) mmol/L Anion Gap 8 (2-11) mmol/L BUN 22 (6-24) mg/dL Creatinine 1.07 (0.67-1.17) mg/dL Est GFR ( Amer) 91.3 (>60) Est GFR (Non-Af Amer) 71.0 (>60) BUN/Creatinine Ratio 20.6 H (8-20) Glucose 133 H (70-100) mg/dL Lactic Acid 1.0 (0.5-2.0) mmol/L Calcium 9.3 (8.6-10.3) mg/dL Total Bilirubin 0.40 (0.2-1.0) mg/dL AST 23 (13-39) U/L ALT 26 (7-52) U/L Alkaline Phosphatase 65 (34-104) U/L Troponin I 0.00 (<0.04) ng/mL B-Natriuretic Peptide ( - 100) pg/mL Total Protein 6.7 (6.4-8.9) g/dL Albumin 4.2 (3.2-5.2) g/dL Globulin 2.5 (2-4) g/dL Albumin/Globulin Ratio 1.7 (1-3) Result Diagrams: 07/09/17 18:55 07/09/17 18:55 Lab Statement: Any lab studies that have been ordered have been reviewed, and results considered in the medical decision making process. - Radiology Chest XR Xray Interpretation: No Acute Changes - IMPRESSION: No active cardiopulmonary disease is noted. Dr. Ceja has reviewed this radiology report. Radiology Interpretation Completed By: Radiologist - EKG 18:17 Cardiac Rate: Bradycardia - at 51 bpm EKG Rhythm: Sinus Bradycardia EKG Interpretation: No acute changes Re-Evaluation - Re-Evaluation First Eval Re-Evaluation Time: 20:02 Comment: I reviewed the lab and XR results with the pt. I discussed the admission plan with the pt and . Chest Pain Course/Dx - Course Assessment/Plan: Pt is a 56 y/o male presenting to [facility] c/o chest pain today. Pt reports he has chest pain only with deep breathing for the past several hours. He has hx of cardiac stents and states that when he breathes deeply he can "feel the two stents." Blood work, chest XR, EKG were obtained. In the ED course the pt was given nitroglycerin. Chest XR is negative. I discussed pt care with Dr. Rodriguez, hospitalist, who has agreed to admit the pt. - Chest Pain Differential Diagnosis/HQI/PQRI: ACS, Angina, CHF, Chest Wall, Lower Respiratory Infection - Diagnoses Provider Diagnoses: Chest pain, History of coronary artery disease - Provider Notifications Discussed Care Of Patient With: Charly Rodriguez Time Discussed With Above Provider: 20:06 Instructed by Provider To: Other - I discussed pt care with Dr. Rodriguez, hospitalist, who has agreed to admit the pt. Discharge - Sign-Out/Discharge Documenting (check all that apply): Discharge/Admit/Transfer - Admit to [facility] - Discharge Plan Condition: Stable Disposition: ADMITTED TO [facility] Referrals: Sarjo Manriquez MD [Primary Care Provider] - - Billing Disposition and Condition Condition: STABLE Disposition: HOSP-[facility] The documentation as recorded by the Cong pride Angela accurately reflects the service I personally performed and the decisions made by , Pasha Ceja.
[2017-07-09] MEDS: Ticagrelor* 90 MG TAB PO SCH (22:04)
[2017-07-09] MEDS: Docusate CAP* 100 MG PO SCH (22:04)
--- NOTE | 2017-07-09 22:45 | HP ---
CC: Dr. Manriquez * HISTORY AND PHYSICAL: DATE OF ADMISSION: 07/09/17 PRIMARY CARE PROVIDER: Dr. Manriquez. ATTENDING PHYSICIAN WHILE IN THE HOSPITAL: Charly Rodriguez MD * (report dictated by Josafat Villarreal NP). CHIEF COMPLAINT: Chest pain. HISTORY OF PRESENT ILLNESS: Mr. Loomis is a 56-year-old male patient. He has a history of CAD. He had an NSTEMI back in end of March 2017. He has a history of arthritis and sciatica. He comes in to our ER today. He states around 2 o'clock this afternoon, he was noticing that when he was taking a deep breath, he was having pain particularly in his left side of his chest wall that really came back anytime he took a deep breath. He states his chest did not feel tender. He denied having any associated shortness of breath with this. He just had a little spot in the left side of his chest that was having a discomfort. He states that he almost felt like he could feel the stents in his heart. He knew that that was probably not likely, but he was concerned because after he was feeling tired, he kind of had some some episodes where he felt lightheaded. He did not faint or pass out. He had no chest pressure. He states that he has been going to cardiac rehab and getting his heart rate up to 120 and not having any chest pressure or discomfort with that. He denied having any shortness of breath associated with this. He did feel clammy. He did not get nauseous, but he was concerned because of his recent history of a heart attack. He touched base with his . His was concerned and convinced him to come to the ER, so she picked him up and brought him into the ER. He says the episode is now gone. He actually feels better. He took a nap here in the ER and he states he feels better. He is not having any more symptoms. Denies any recent fevers or chills. No cough. No abdominal pain. There has been no nausea or vomiting. No dysuria. No frequency. He denies having any seizures or any recent loss of consciousness but because of the chest discomfort, his history, he decided to come in to the ER today to be evaluated. He was evaluated here in the ED because of the chest pain. We were asked to evaluate for admission. PAST MEDICAL HISTORY: Significant for: 1. IN. 2. CAD. 3. Sciatica. 4. Arthritis. PAST SURGICAL HISTORY: 1. He has had a heart catheterization. 2. Bowel resection in 1977. 3. He had lysis of adhesions. HOME MEDICATIONS: Include: 1. Nitroglycerin 0.4 mg sublingual q.5 minutes p.r.n. chest pain x3. 2. Potassium 10 mEq p.o. daily. 3. Toprol-XL 50 mg daily. 4. Lipitor 80 mg daily. 5. Aspirin 81 mg daily. 6. Brilinta 90 mg p.o. b.i.d. 7. Multivitamin 1 tablet daily. ALLERGIES TO MEDICATIONS: Include no known drug allergies. FAMILY HISTORY: Mother of a neurological condition. Father had heart disease. SOCIAL HISTORY: He does not smoke, does not drink. Surrogate decision maker is his . REVIEW OF SYSTEMS: There was no documented fever. He denied having any significant weight change. There was no double vision. He denies having any ear discharge. There is no rhinorrhea. He denies having any sore throat. There is no thyroid enlargement. There was chest pain per my HPI. There is no orthopnea. There is no nocturnal dyspnea. There was no abdominal pain, no nausea, no vomiting. No dysuria. No frequency. No seizure. No loss of consciousness. No pruritus and no skin ulcerations. Review of 14 systems completed, all others negative. PHYSICAL EXAMINATION GENERAL: At this time, Mr. Loomis is a 56-year-old male patient. He appears to be well nourished, well developed. He is sitting in the ED stretcher. He does not appear to be in any acute distress. VITAL SIGNS: Blood pressure 126/83, pulse of 55, respirations 14, O2 sat 96%, temperature 97.3. HEENT: Head: Atraumatic, normocephalic. Eyes: EOMs intact. Sclerae anicteric and not pale. Throat: Oral mucosa appears to be moist. No oropharyngeal erythema. NECK: Supple. LUNGS: Clear to auscultation bilaterally. There were no wheezes, rales, or rhonchi. HEART: Sounds S1, S2. Regular rate and rhythm. No murmurs, rubs, or gallops. ABDOMEN: Soft, it was flat, nontender. Bowel sounds were present. EXTREMITIES: Pulses were 2+ throughout. He is moving all 4 extremities with 5/ 5 strength. NEUROLOGIC: The patient is awake, alert. He is oriented x3. No gross focal deficits. SKIN: Intact. LABORATORY DATA/DIAGNOSTIC STUDIES: WBC of 5.0, RBC of 4.30, hemoglobin of 13.7, hematocrit of 40, and platelet count of 156. INR was 0.91. PTT was 30.3. Sodium was 139, potassium was 3.7, chloride of 103, bicarb of 28, BUN 22 , creatinine 1.07, glucose 133. Lactate 1.0. Calcium 9.3. Total bili 0.4, AST 23, ALT 26, alk phos 55. Troponin was 0. BNP 28. Albumin of 4.2. He had a chest x-ray obtained today, which showed no active cardiopulmonary disease. There was an EKG obtained today, which showed a sinus bradycardia, rate of 51, no ST elevation or T wave inversions. I did review the cath report from . I will refer you to Dr. Oakes's report for details; but in short, there was stenting done to the LAD and also stenting to the second small OM. Old medical records were reviewed. ASSESSMENT AND PLAN: Mr. Loomis is a 56-year-old male patient who comes in to the ED today with complaints of chest pain that is atypical; however, he has several risk factors for coronary artery disease. We were asked to evaluate for admission. He will be admitted under observation status for: 1. Chest pain. Again, story is atypical for acute coronary syndrome; however, he has had a heart attack a couple of months ago, so I do think we should keep him for observation overnight, cycle his troponins, place him on telemetry, get an EKG in the morning. As he has already remained stable, he probably would benefit from outpatient stress test, which can be followed up with his primary veterinary parasitologist, Dr. Parmar. At this point, we will continue his aspirin, Brilinta, statin, and beta- evangelina therapy. We will continue to follow. 2. History of coronary artery disease with a vlv-HE-zphvtlbsv myocardial in April of this year. Continue aspirin, statin, beta-evangelina therapy. He is on Brilinta. We will continue this. We will continue to cycle his troponins. 3. History of arthritis. Continue with supportive care. 4. History of sciatica. Continue meds as prescribed. 5. DVT prophylaxis. He will be placed on heparin subcu. 6. Code status. Full code. 7. Fluids, electrolytes, and nutrition. He can have a heart healthy diet. TIME SPENT: Time spent on the admission was 60 minutes, greater than half the time was spent [id number] with the patient obtaining my history and physical, other half the time was spent going over the plan of care with the patient and implementing plan of care. I did discuss the plan of care with my attending, Dr. Rodriguez; he is in agreement. JOSAFAT VILLARREAL NP [id number]/[facility] #: [id number] [facility]
[2017-07-10 01:41] LABS: EGFR Non-African American 59.3 (>60)
[2017-07-10] MEDS ORDERED: Omeprazole CAP* 20 MG PO SCH (06:00)
[2017-07-10] MEDS ORDERED: Heparin VIAL(*) 5000 UNITS/ML VIAL (FIVE THOUSAND) SUBCUT SCH (06:00)
[2017-07-10] MEDS: Ticagrelor* 90 MG TAB PO SCH (08:29)
[2017-07-10] MEDS: Docusate CAP* 100 MG PO SCH (08:30)
[2017-07-10] MEDS ORDERED: Metoprolol Succinate XL TAB* 50 MG PO SCH (09:00)
[2017-07-10] MEDS ORDERED: Atorvastatin* 80 MG TAB PO SCH (09:00)
[2017-07-10] MEDS ORDERED: Potassium Chlor TAB* 10 MEQ TAB.ER PO SCH (09:00)
[2017-07-10] MEDS ORDERED: Aspirin EC TAB* 81 MG TAB.EC PO SCH (09:00)
[2017-07-10] MEDS ORDERED: Metoprolol Succinate XL TAB* 25 MG PO SCH (09:30)
--- NOTE | 2017-07-10 11:10 | PN ---
Subjective Date of Service: 07/10/17 Interval History: Mr. Loomis denies complaint today and is eager for discharge. Objective Active Medications: Acetaminophen (Tylenol Tab*) 650 mg PO Q6H PRN PRN Reason: FEVER/PAIN Albuterol (Ventolin 2.5 Mg/3 Ml Neb.Zulma*) 2.5 mg INH Q2H PRN PRN Reason: SOB/WHEEZING Aspirin (Aspirin Ec Tab*) 81 mg PO DAILY [facility] Last Admin: 07/10/17 08:29 Dose: 81 mg Atorvastatin Calcium (Lipitor*) 80 mg PO DAILY [facility] Last Admin: 07/10/17 08:29 Dose: 80 mg Docusate Sodium (Colace Cap*) 200 mg PO BID [facility] Last Admin: 07/10/17 08:30 Dose: Not Given Heparin Sodium (Porcine) (Heparin Vial(*)) 5,000 units SUBCUT Q8HR [facility] Last Admin: 07/10/17 05:32 Dose: 5,000 units Sodium Chloride (Ns 0.9% 1000 Ml*) 1,000 mls @ 50 mls/hr IV PER RATE [facility] Stop: 07/10/17 16:41 Last Admin: 07/09/17 21:07 Dose: 50 mls/hr Metoprolol Succinate (Toprol Xl Tab*) 25 mg PO 0930 [facility] Last Admin: 07/10/17 09:43 Dose: 25 mg Morphine Sulfate (Morphine Vial*) 2 mg IV Q4H PRN PRN Reason: PAIN Omeprazole (Prilosec Cap*) 20 mg PO DAILY@0600 [facility] Last Admin: 07/10/17 05:30 Dose: 20 mg Ondansetron HCl (Zofran Inj*) 4 mg IV Q6H PRN PRN Reason: NAUSEA Potassium Chloride (Klor Con Er Tab*) 10 meq PO DAILY [facility] Last Admin: 07/10/17 08:29 Dose: 10 meq Ticagrelor (Brilinta*) 90 mg PO BID [facility] Last Admin: 07/10/17 08:29 Dose: 90 mg Vital Signs: Temp Pulse Resp BP Pulse Ox 97.2 F 55 16 109/62 100 07/10/17 07:17 07/10/17 07:17 07/10/17 07:17 07/10/17 07:17 07/10/17 07:17 Oxygen Devices in Use Now: None Appearance: Male sitting up in bed in NAD Eyes: No Scleral Icterus Ears/Nose/Mouth/Throat: Mucous Membranes Moist Neck: Trachea Midline Respiratory: Symmetrical Chest Expansion and Respiratory Effort, Clear to Auscultation Cardiovascular: NL Sounds; No Murmurs; No JVD, No Edema Abdominal: NL Sounds; No Tenderness; No Distention Extremities: No Edema Skin: No Rash or Ulcers Neurological: Alert and Oriented x 3, NL Muscle Strength and Tone Nutrition: Taking PO's Result Diagrams: 07/09/17 18:55 07/10/17 00:19 Additional Lab and Data: Vital Signs: Temp Pulse Resp BP Pulse Ox 97.2 F 55 16 109/62 100 07/10/17 07:17 07/10/17 07:17 07/10/17 07:17 07/10/17 07:17 07/10/17 07:17 Assess/Plan/Problems-Billing Assessment: Mr. Loomis is a 56 yo male with recent stent placement x 2 for CAD and NSTEMI who was admitted on 07/09/17 with chest pain. - Patient Problems (1) Chest pain Comment: - Trops negative, EKG without evidence of ischemia. - Patient able to do maximal effort during exercise at cardiac rehab without chest pain or significant SOB. - Unlikely to be cardiac related given negative workup. - Plan to follow up with Dr. Parmar on July 22. (2) DVT prophylaxis Comment: (3) Full code status Comment: Status and Disposition: OBV. Discharge to home.
[2017-07-10 11:28] VITALS: BP 118/61
--- NOTE | 2017-07-10 13:18 | DS ---
CC: Dr. Manriquez; Dr. Parmar; Dr. Oakes.* DISCHARGE SUMMARY: DATE OF ADMISSION: 07/09/17 DATE OF DISCHARGE: 07/10/17 PRIMARY CARE PHYSICIAN: Dr. Manriquez. DIRECTOR UTILIZATION MANAGEMENT: Dr. Parmar. BUTT TRIMMER: Dr. Oakes. ATTENDING PHYSICIAN: Dr. Carreon * (dictation provided by Girish Salgado NP) PRIMARY DIAGNOSIS: Chest pain. SECONDARY DIAGNOSES: 1. History of coronary artery disease with non-ST elevation myocardial infarction and stent placement x2 in April 2017. 2. Sciatica. 3. Arthritis. 4. History of bowel resection in 1977. 5. History of lysis of adhesions. MEDICATIONS: At the time of discharge are: 1. Metoprolol succinate 25 mg p.o. daily (new lower dose). 2. Nitroglycerin 0.4 mg sublingually q.5 minutes p.r.n. chest pain x3. 3. Potassium 10 mEq p.o. daily. 4. Lipitor 80 mg p.o. daily. 5. Aspirin 81 mg p.o. daily. 6. Brilinta 90 mg p.o. b.i.d. 7. Multivitamin 1 tab p.o. daily. HOSPITAL COURSE: Mr. Loomis is a 56-year-old male with a past medical history of recent [place] with stent placement x2 in April 2017, who presented to the hospital on 07/09/17 with complaint of chest pain. Please see the dictated H and P from Josafat Villarreal for complete details. In brief, the patient had developed chest pain with deep inspiration while at rest. He further reported that he had been participating with cardiac rehab and able to obtain maximum heart rate of at least 120 beats per minute with no chest pain or shortness of breath. This chest pain lthat ed to his presentation, was not associated with shortness of breath, nausea, or diaphoresis. In the emergency room, he has troponin which was 0.00 and an EKG, which showed no evidence of ischemia. Mr. Loomis was admitted to the hospital overnight. He was monitored on the telemetry unit without any evidence of arrhythmia. He had repeat troponin x3 which were all 0.01. He has been chest pain free since his arrival to the ED. In further discussion with Mr. Loomis, he states that he had had drunk a bit of alcohol the night before arriving to the ED and also had more coffee than usual the day prior to development of his chest discomfort. He also notes that when he felt the sensation in his chest that he did become quite fixated on this and became anxious as well. His slef-limited non-exertional chest discomfort is perhaps musculoskeletal or GI related, compounded by anxiety, but at this point no further cardiac workup is indicated. Mr. Loomis is medically stable for discharge to home. During this hospitalization, his heart rate has been running about 50 to 60 and his blood pressure has been as low as a high 90s. For that reason, I have decreased his metoprolol XL from 50 mg daily to 25 mg daily. He will be filling up with Dr. Parmar on 07/22/17. I have encouraged him to return to the emergency room should he have any further chest pain or unusual shortness of breath or worrisome symptoms. DISPOSITION: Home. DIET: Heart healthy. ACTIVITY: As tolerated. FOLLOWUP PLANS: 1. Please follow up with Dr. Parmar on 07/22/17. 2. Please follow up with Dr. Manriquez as needed. TIME SPENT: Approximately 60 minutes were spent on the discharge of this patient, more than half the time spent with the patient at the bedside reviewing the events leading up to and during his hospitalization, performing the physical examination, and reviewing the plan of care. GIRISH SALGADO NP [id number]/[facility] #: [id number] [place]
== END 2017-07-10 11:57 | disposition home or self-care (01) ==
LOC: ED 18:11 → MEDTELE 20:07
PROVIDERS: ADMIT Hospitalist; ATTEND Student in an Organized Health Care Education/Training Program
DX: R07.9 Chest pain, unspecified (principal); I25.10 Atherosclerotic heart disease of native coronary artery without angina pectoris; Z95.5 Presence of coronary angioplasty implant and graft; I25.2 Old myocardial infarction; M54.30 Sciatica, unspecified side; M19.90 Unspecified osteoarthritis, unspecified site; Z79.899 Other long term (current) drug therapy; R00.1 Bradycardia, unspecified
CPT/HCPCS: 36415; 71045; 80053; 80061; 82565; 83036; 83605; 83880; 84484; 84520; 85025; 85379; 85610; 85730; 93005; 96360; 96361; 96372; 99284; A9270-GY; G0378; J1644

== ENCOUNTER → 2018-08-30 05:37 | Day surgery (SDC) | payer BC ==
--- NOTE | 2018-08-24 16:23 | HP ---
HISTORY AND PHYSICAL: DATE OF ADMISSION/SURGERY: 08/30/18 DATE OF OFFICE VISIT: 08/24/18 SURGEON: Marya Sutton MD. * (DICTATED BY DONNELL BOBBY) PROCEDURES: Left knee arthroscopy with partial meniscectomy, possible chondroplasty, possible synovectomy, and possible plica excision. CHIEF COMPLAINT: Left knee pain. HISTORY OF PRESENT ILLNESS: Mr. Loomis is a 57-year-old gentleman with complaints of left knee pain. He has elected to proceed with a left knee arthroscopy. PAST MEDICAL HISTORY: Prior CT, hypertension, and high cholesterol. PAST SURGICAL HISTORY: Heart stent placement and 2 prior intestinal surgeries. CURRENT MEDICATIONS: 1. Brilinta 60 mg twice a day. 2. Metoprolol 25 mg a day. 3. Nitrostat as needed. 4. Atorvastatin calcium 80 mg a day. 5. Aspirin 81 mg daily. 6. Potassium chloride 10 mEq daily. 7. Acetaminophen as needed. ALLERGIES: No known drug allergies. FAMILY HISTORY: Coronary artery disease. SOCIAL HISTORY: He is a 57-year-old gentleman, lives with his . He does not smoke or use drugs. He uses occasional alcohol. REVIEW OF SYSTEMS: A complete 14-point review of systems was reviewed with the patient. It was all negative or noncontributory. He denies history of DVT, PE , hepatitis, HIV, or anesthesia problems. PHYSICAL EXAMINATION GENERAL: He is well developed, well nourished, in no acute distress. VITAL SIGNS: He stands 73 inches tall, he weighs 197 pounds. His blood pressure is 116/62, his heart rate is 70. HEENT: Normocephalic, atraumatic. NECK: Supple. No palpable lymph nodes. PULMONARY: The lungs are clear to auscultation bilaterally. CARDIO: Regular rate and rhythm. Strong S1, S2. ABDOMEN: Soft, nontender, nondistended. NEUROLOGICAL: He is alert and oriented x3. MUSCULOSKELETAL: Left lower extremity: The skin is intact. There are no open wounds or abrasions. There is a moderate effusion of the left knee joint, some tenderness over the medial joint line. Range of motion is 5 to 100 degrees of flexion with patellofemoral crepitus. He has positive Apley's, positive Edward's. Negative Lorenzo's. He has 2+ dorsalis pedis pulse. He is able to dorsiflex and plantarflex and has intact sensation. ASSESSMENT AND PLAN: Mr. Loomis is a 57-year-old gentleman with complaints of left knee pain. An MRI confirms a medial meniscus tear as well as a large anterior osteophyte versus loose body. He has elected to proceed with a left knee arthroscopy with partial meniscectomy, possible chondroplasty, possible synovectomy, possible plica excision, and possible loose body excision. The surgery is scheduled for 08/30/[address] Sutton has discussed the risks and benefits of the surgery at today's visit and all of his questions were answered. He will follow up with Dr. Sutton two weeks after the surgery. He was instructed today to stop his Brilinta and he will continue the aspirin. DONNELL BOBBY [id number]/[facility] #: [id number] [place]
[~2018-08-30 05:37] MED LIST: Acetaminophen TAB* 325 MG PO PRN; Buffered Lidocaine 1% SYRIN* 1 ML/SYRINGE INTRADERM ONE; Bupivacaine 0.5%* 50 ML VIAL ONE; Chloroprocaine 2%* 20 ML VIAL ONE; EPINEPHRINE 1 MG/ML 1 ML VIAL ONE; HYDROmorphone INJ1* 1 MG/ML SYRINGE IV PRN; Lactated Ringers 1000 ML Bag* 1,000 ML IV SCH; Lidocaine 2% PF * 5 ML VIAL ONE; Midazolam* 1 MG/ML 2 ML VIAL (2 MG) ONE; Naloxone* 0.4 MG/ML 1 ML VIAL IV PRN; Ondansetron INJ* 2 MG/ML VIAL IV PRN; Ondansetron INJ* 2 MG/ML VIAL ONE; Propofol* 10 MG/ML 20 ML BTL ONE; Propofol* 500 MG/50 ML BTL ONE; ROPIVACAINE 5 MG/ML 30 ML BTL (0.5%) ONE; ceFAZolin 2 GM in NS PREMIX(*) 2 GM/100 ML BAG IVPB ONE; fentaNYL* 50 MCG/ML 2 ML VIAL (100 MCG VIAL) ONE; methylPREDNISolone ACETATE 80* 80 MG/ML 1 ML VIAL ONE; oxyCODONE TAB* 5 MG TAB PO PRN
[2018-08-30 12:12] VITALS: BP 134/98
--- NOTE | 2018-08-30 23:40 | OP ---
OPERATIVE REPORT: DATE OF OPERATION: 08/30/18 DATE OF : 56 ATTENDING SURGEON: Marya Sutton MD ADVERTISER: DONNELL Anguiano Ms. did help throughout the procedure with preparation of the leg, wound retraction, manipulat ion of the knee, and wound closure. ANESTHESIOLOGIST: Dr. Gutiérrez. ANESTHESIA TYPE: Spinal. PRE-OP DIAGNOSES: Left knee jepm-za-ihaubzxp osteoarthritis, medial meniscal tear, possible loose rhett dy. POST-OP DIAGNOSES: Left knee ymmwynov-df-vhwzfv degenerative osteoarthritis, medial meniscal tear, n o obvious loose body. OPERATIVE PROCEDURE: Left knee arthroscopy with partial medial meniscectomy and anterior synovectomy . COMPLICATIONS: None. SPECIMEN: None. ESTIMATED BLOOD LOSS: Less than 25 cc. SPECIMEN: None. BRIEF HISTORY/INDICATION: Mr. Loomis is a 57-year-old gentleman with 1 year of increasingly severe l eft knee pain and mechanical symptoms. He was diagnosed with a meniscal tear, has tried to treat thi s conservatively. Physical therapy, antiinflammatories failed to relieve this pain. Due to continue d pain and mechanical symptoms with recurrent effusion, he elected to undergo left knee arthroscopy w ith partial meniscectomy, possible chondroplasty, possible synovectomy, possible loose body excision. Informed consent was obtained from the patient. He understood the risks of surgery included but we re not limited to bleeding, infection, damage to nearby structures, continued pain, need for further surgery, intraoperative complications, retear of the meniscus, stroke, heart attack, blood clot and d eath. He wished to proceed. INTRAOPERATIVE FINDINGS: Intraoperatively, the patient had a large osteophyte along the anterolatera l joint line. This was not a loose body. This was fixed to the anterior tibial plateau laterally. No visible loose body was encountered. There was a radial type tear along the posterior horn of the m edial meniscus in the red-white zone. There were grade 3 and 4 Outerbridge cartilage changes along t he medial femoral condyle as well as the patellofemoral compartment. DESCRIPTION OF PROCEDURE: Mr. Loomis was identified in the preanesthesia unit. His left lower extrem ity was marked as the correct operative side. Informed consent was signed and placed in the chart. The patient was taken to the operating room and placed under spinal anesthesia without difficulties. Left lower extremity was prepped and draped in the usual sterile fashion. Preop time-out was made t o correctly identify the patient's side and site. Appropriate perioperative antibiotics were given w ithin 1 hour of incision. A 0.5 cm anterolateral portal incision was made with a 10 blade, carried down to the capsule. Trocar was introduced. As soon as the light and water sources were turned on, there was immediate visualiz ation of the suprapatellar pouch. A tour of the knee joint was performed. Suprapatellar pouch had n o obvious loose bodies or abnormalities. Patellofemoral compartment had grade 3 and 4 Outerbridge ca rtilage changes involving the medial and lateral patellar facet with exposed subchondral bone. There was also significant cartilage loss along the trochlear of the femur. Medial gutter showed no loose body or plica. Anteriorly, there was large amounts of synovitis. The medial compartment showed grad e 3 and 4 Outerbridge cartilage changes with exposure of chondral bone along the weightbearing surfac e of the medial femoral condyle. Medial meniscus had an obvious tear along the posterior horn. ACL and PCL appeared to be intact. The knee was placed in a zyuxib-du-ilut position. Minimal degenerati ve changes in the lateral compartment although there was a large visible osteophyte along the anterol ateral joint line. Lateral meniscus showed no obvious tear. Lateral gutters showed no obvious abnor malities. Under direct visualization, a medial portal incision was made with a 10 blade. A probe was introduce d. Second tour of the knee joint was performed. No additional findings were noted. Radiofrequency ablation wand and shaver were used to perform anterior synovectomy. Visualization was much improved. Once again no loose body was encountered. There was a thick solid anterolateral osteophyte along t he anterior lateral tibial plateau. This was fixed. Decision was made not to probe or try to excise this. Probe was used to assess the posterior medial meniscus tear. This is a radial tear along the posteri or horn of the medial meniscus. Straight biter and shaver were used to perform partial medial menisc ectomy. A smooth border of the meniscus was obtained and the tear was completely excised. Further p robing of the medial meniscus showed no additional tears. The knee was copiously irrigated with sterile saline. All instruments were removed. Incisions were closed with 3-0 nylon suture. Intraarticular injection with 80 mg Depo-Medrol and 6 cc of 0.25% Rickie tashi was placed in the knee joint. The patient's incisions were covered with Xeroform, 4x4s, and Webr il. TOPHER wrap and cold packs were placed over this. The patient's anesthesia was reversed without di fficulty. He was taken to the PACU in stable condition. He will be weightbearing as tolerated. He will have aspirin for DVT prophylaxis and follow up in 2 weeks time for suture removal. [id number]/[facility] #: [id number]
== END | disposition home or self-care (01) ==
LOC: OR 05:37
PROVIDERS: ATTEND Orthopaedic Surgery Adult Reconstructive Orthopaedic Surgery
DX: S83.242A Other tear of medial meniscus, current injury, left knee, initial encounter (principal); X58.XXXA Exposure to other specified factors, initial encounter; Y92.9 Unspecified place or not applicable; I25.2 Old myocardial infarction; I10 Essential (primary) hypertension; E78.00 Pure hypercholesterolemia, unspecified; Z95.5 Presence of coronary angioplasty implant and graft
CPT/HCPCS: J0690; J1040; J2250; J2400; J2405; J2704; J2795; J3010; J3490

== ENCOUNTER 2023-11-29 20:32 | Inpatient (IN) ==
[2023-11-29 21:10] LABS: ABS Eosinophils 0.1 10^3/uL (0.0-0.5); ABS Lymphocytes 1.8 10^3/uL (1.0-4.8); ABS Monocytes 0.5 10^3/uL (0.0-1.1); ABS Neutrophils 3.2 10^3/uL (1.5-7.6); Eosinophil % 2.3 %; Hematocrit 38.7 % (38-53); Lymphocyte % 31.8 %; Mean Corpuscular Hemoglobin 31.8 pg (27-33); Mean Corpuscular Hgb Conc 33.6 g/dL (31-36); Mean Corpuscular Volume 94.4 fL (80-97); Mean Platelet Volume 8.3 fL (7.5-11.2); Nucleated Red Blood Cells % 0.1 %/100WBC (0.0-0.8); Platelet Count 188 10^3/uL (150-450); Red Cell Distribution Width 12.7 % (12-17); White Blood Count 5.7 10^3/uL (3.6-10.2)
[2023-11-29 21:24] LABS: INR 1.09 (0.85-1.14)
[2023-11-29 21:52] LABS: Albumin 4.4 g/dL (3.2-5.2); Albumin/Globulin Ratio 2.2 (1-3); Calcium 9.1 mg/dL (8.6-10.3); Creatinine, Serum 1.15 mg/dL (0.67-1.17); Potassium 3.8 mmol/L (3.5-5.0); Total Bilirubin 0.5 mg/dL (0.2-1.0); Total Protein 6.4 g/dL (6.4-8.9); eGFR CKD-EPI 71.1 (>60)
[2023-11-29 22:32] LABS: High Sensitivity Troponin 1 Hr 24 pg/mL (<20)
[2023-11-30 06:51] LABS: ABS Eosinophils 0.2 10^3/uL (0.0-0.5); ABS Lymphocytes 1.6 10^3/uL (1.0-4.8); ABS Monocytes 0.5 10^3/uL (0.0-1.1); ABS Neutrophils 2.2 10^3/uL (1.5-7.6); ABS Nucleated RBC 0.01 10^3/ul; Eosinophil % 3.5 %; Hematocrit 36.8 % (38-53); Hemoglobin 12.8 g/dL (13.2-16.3); Lymphocyte % 35.6 %; Mean Corpuscular Hemoglobin 32.9 pg (27-33); Mean Corpuscular Hgb Conc 34.7 g/dL (31-36); Nucleated Red Blood Cells % 0.1 %/100WBC (0.0-0.8); Platelet Count 164 10^3/uL (150-450); Red Blood Count 3.88 10^6/uL (4.06-5.63); Red Cell Distribution Width 12.4 % (12-17); White Blood Count 4.5 10^3/uL (3.6-10.2)
[2023-11-30 07:23] LABS: Calcium 8.8 mg/dL (8.6-10.3); Creatinine, Serum 1.08 mg/dL (0.67-1.17); Magnesium 1.8 mg/dL (1.9-2.7); eGFR CKD-EPI 76.6 (>60)
[2023-11-30 09:59] LABS: HDL Cholesterol 62.8 mg/dL
[2023-11-30] MEDS: Magnesium Sulfate 2 gm BAG 2 GM/50 ML BAG IVPB ONE (10:40)
[2023-11-30] MEDS: Aspirin EC 81 mg TAB.EC (enteric coated) PO SCH (10:41)
[2023-11-30 12:13] LABS: High Sensitivity Troponin 3 Hr 102 pg/mL (<20)
[2023-12-01] MEDS: NS 0.9% 1000 ml BAG 1,000 ML IV SCH (05:41)
[2023-12-01] MEDS ORDERED: fentaNYL 100 mcg/2 ml 50 MCG/ML VIAL ONE ×3 (08:08→09:40)
[2023-12-01] MEDS ORDERED: Midazolam 5 mg/5 ml VIAL 1 mg/ml 5 ml VIAL (5 mg) ONE ×2 (08:08→09:41)
[2023-12-01] MEDS ORDERED: nitroGLYCERIN DRIP 25,000 MCG/250 ML BTL ONE (08:15)
[2023-12-01] MEDS ORDERED: Heparin 1,000 UNIT/ML 10 ml (10,000 UNITS) CATHLAB/DIALYSIS ONE (08:15)
[2023-12-01] MEDS ORDERED: Heparin 2 UNITS/ML 1000 mls 3,000 ML IV ONE (08:15)
[2023-12-01] MEDS ORDERED: Iohexol 350 (CONTRAST) 200 ML MDV IV ONE (08:16)
[2023-12-01] MEDS ORDERED: niCARdipine 0.1MG/ML IVPREMIX 20 MG/200 ML BAG IV ONE (08:16)
[2023-12-01] MEDS ORDERED: Lidocaine 1% MPF 5 ML VIAL ONE (08:16)
[2023-12-01] MEDS ORDERED: Flumazenil 0.5 mg/5 ml 0.1 MG/ML 5 ml VIAL IV PRN (08:19)
[2023-12-01] MEDS ORDERED: Naloxone 0.4 mg VIAL 0.4 mg/ml 1 ml VIAL IV PUSH PRN (08:19)
[2023-12-01] MEDS: fentaNYL 100 mcg/2 ml 50 MCG/ML VIAL IV SLOW PU ONE (10:39)
[2023-12-01] MEDS: Midazolam 10 mg/10 ml VIAL 1 mg/ml 10 ml VIAL (10 mg) IV SLOW PU ONE (10:39)
[2023-12-01 15:07] VITALS: BP 124/89
== END 2023-12-01 15:47 | disposition home or self-care (01) | DRG 192 ==
LOC: ED 20:32 → EDHOLD 20:32 → SUATTDRO 23:11 → MED 11-30 04:04 → MEDTELE 12-01 13:50
PROVIDERS: ADMIT Internal Medicine; ATTEND Student in an Organized Health Care Education/Training Program